=== PATIENT | male | born 1960 | race Caucasian/White ===

== ENCOUNTER → 2019-02-21 | Outpatient (CLI) | payer BC, SELFPAY ==
[2019-02-21 08:55] LABS: AST(SGOT) 16 U/L (15-37); Alanine Aminotransfer ALT/SGPT 40 U/L (16-61); Albumin, Serum 3.8 g/dL (3.2-5.0); Alkaline Phosphatase 61 U/L (45-117); Bilirubin, Direct 0.15 mg/dL (0.00-0.30); Cholesterol 159 mg/dL (200); GGTP 55 U/L (15-85); Globulin 3.1 g/dL (2.2-4.2); High Density Lipoprotein 52 mg/dL; Protein, Total 6.9 g/dL (6.4-8.2); Triglycerides 107 mg/dL; Very Low Density Lipoprotein 21 mg/dL (5-40)
== END | disposition home or self-care (01) ==
LOC: LAB 07:06
PROVIDERS: Family Provider Family Medicine; PCP Family Medicine; Referring Provider Family Medicine; Visit Provider Family Medicine
DX: R94.5 Abnormal results of liver function studies (principal)
CPT/HCPCS: 36415; 80061; 80076; 82977

== ENCOUNTER → 2019-07-31 16:26 | Outpatient (CLI) | payer OTHER, SELFPAY ==
[2019-07-31 18:43] LABS: AST(SGOT) 16 U/L (15-37); Alanine Aminotransfer ALT/SGPT 41 U/L (16-61); Albumin, Serum 4.2 g/dL (3.2-5.0); Alkaline Phosphatase 71 U/L (45-117); Anion Gap 6 (5-15); BUN 18 mg/dL (7-18); BUN/Creat Ratio 19.2 RATIO (10-20); Calcium,Total 9.5 mg/dL (8.5-10.1); Chloride 104 mmol/L (98-107); Cholesterol 166 mg/dL (200); Creatinine, Serum 0.94 mg/dL (0.70-1.30); EST Glomerular Filtration Rate 87 mL/min (>60); Est Glom Filt Rate - Afr Amer 106 mL/min (>60); Globulin 3.3 g/dL (2.2-4.2); Glucose 88 mg/dL (74-106); High Density Lipoprotein 53 mg/dL; Potassium 3.7 mmol/L (3.5-5.1); Protein, Total 7.5 g/dL (6.4-8.2); Sodium Level 138 mmol/L (136-145); Triglycerides 139 mg/dL; Very Low Density Lipoprotein 28 mg/dL (5-40)
== END ==
PROVIDERS: PCP Family Medicine; Referring Provider Family Medicine; Visit Provider Family Medicine
DX: Z00.00 Encounter for general adult medical examination without abnormal findings (principal)
CPT/HCPCS: 36415; 80048; 80061; 80076

== ENCOUNTER → 2020-01-27 15:07 | Outpatient (CLI) | payer OTHER, SELFPAY ==
--- NOTE | 2020-01-27 15:27 | RAD_ITS ---
STUDY: X-RAY - PELVIS AND RIGHT HIP REASON FOR EXAM: Male, 59 years old. bilateral hip pain, right more than the left TECHNIQUE: 3 views of the pelvis and hip. COMPARISON: None. FINDINGS: There is a non-specific bowel gas pattern. Normal visualized soft tissue structures. Normal bilateral iliac wings, sacroiliac joints and visualized sacrum. Normal bilateral superior and inferior pubic rami. Normal pubic symphysis. Normal bilateral ischial tuberosities. Normal visualized femoral head. Normal acetabulum. Mild degenerative narrowing of the hip joint. Small calcific deposits juxtapose the base of the greater trochanter. RAD/HIP, UNI W/ Pelvis 2-3 Views IMPRESSION: Normal pelvis. Mild degenerative narrowing of the right hip. Focal small calcific deposits juxtapose the base of the right greater trochanter. Electronically Signed: Catie Gonsalves MD at 16:46 EDT , Service support ,
[2020-01-27 17:56] LABS: Anion Gap 4 (5-15); BUN 16 mg/dL (7-18); BUN/Creat Ratio 16.5 RATIO (10-20); Calcium,Total 9.1 mg/dL (8.5-10.1); Chloride 107 mmol/L (98-107); Creatinine, Serum 0.97 mg/dL (0.70-1.30); EST Glomerular Filtration Rate 84 mL/min (>60); Est Glom Filt Rate - Afr Amer 102 mL/min (>60); Glucose 100 mg/dL (74-106); Potassium 3.4 mmol/L (3.5-5.1); Sodium Level 138 mmol/L (136-145)
== END ==
PROVIDERS: PCP Family Medicine; Referring Provider Family Medicine; Visit Provider Family Medicine
DX: I10 Essential (primary) hypertension (principal); M25.551 Pain in right hip
CPT/HCPCS: 36415; 73502; 80048

== ENCOUNTER → 2020-08-05 15:58 | Outpatient (CLI) | payer OTHER, SELFPAY ==
[2020-08-05 18:03] LABS: AST(SGOT) 12 U/L (15-37); Alanine Aminotransfer ALT/SGPT 28 U/L (16-61); Anion Gap 6 (5-15); BUN 17 mg/dL (7-18); BUN/Creat Ratio 18.4 RATIO (10-20); Calcium,Total 9.1 mg/dL (8.5-10.1); Chloride 107 mmol/L (98-107); Cholesterol 131 mg/dL (200); Creatinine, Serum 0.92 mg/dL (0.70-1.30); EST Glomerular Filtration Rate 89 mL/min (>60); Est Glom Filt Rate - Afr Amer 107 mL/min (>60); Glucose 84 mg/dL (74-106); High Density Lipoprotein 61 mg/dL; PSA,Total - Annual Screen 4.64 ng/mL (0.00-4.00); Potassium 3.6 mmol/L (3.5-5.1); Sodium Level 140 mmol/L (136-145); Triglycerides 124 mg/dL; Very Low Density Lipoprotein 25 mg/dL (5-40)
== END ==
PROVIDERS: PCP Family Medicine; Referring Provider Family Medicine; Visit Provider Family Medicine
DX: I10 Essential (primary) hypertension (principal); E78.00 Pure hypercholesterolemia, unspecified; N40.0 Benign prostatic hyperplasia without lower urinary tract symptoms
CPT/HCPCS: 36415; 80048; 80061; 84153; 84450; 84460; G0103

== ENCOUNTER → 2020-08-13 08:46 | Outpatient (CLI) | payer OTHER, SELFPAY ==
--- NOTE | 2020-08-13 08:54 | US_ITS ---
EXAM: US ABDOMEN LIMITED, RIGHT UPPER QUADRANT CLINICAL INDICATION: RUQ PAIN TECHNIQUE: Real-time ultrasound of the right upper quadrant with image documentation. This report was created using ReadOz report generation technology. COMPARISON: None available FINDINGS: LIVER: Hypoechoic, septated mass of the right hepatic dome measures 1.8 x 2.4 x 3.2 cm without definitive vascular flow but no posterior acoustic enhancement. No intrahepatic biliary ductal dilation. GALLBLADDER: Unremarkable. No shadowing gallstone. No gallbladder wall thickening is demonstrated. No pericholecystic fluid. Negative sonographic Mayberry''s sign. COMMON BILE DUCT: Unremarkable as visualized. The proximal common bile duct is within normal limits for the patient''s age. PANCREAS: Unremarkable as visualized. No focal abnormality is demonstrated in the pancreas. No pancreatic ductal dilatation. RIGHT KIDNEY: Unremarkable. There is no hydronephrosis. No shadowing calculus. No focal lesion or perinephric collection is demonstrated. US/Abdomen Limited IMPRESSION: Complex hepatic cyst versus solid lesion. Hepatic protocol CT or MRI recommended. Electronically Signed: Manoj Madison MD ([place]) at 15:38 EST , Service support ,
== END ==
PROVIDERS: PCP Family Medicine; Referring Provider Family Medicine; Visit Provider Family Medicine
DX: R10.11 Right upper quadrant pain (principal)
CPT/HCPCS: 76705

== ENCOUNTER → 2020-08-30 | Outpatient (CLI) | payer OTHER, SELFPAY ==
--- NOTE | 2020-08-30 | IMM_PTH ---
PATIENT: ABDULLAHI SNELL . LOC: [facility] U#:[id number] AGE/SX: 60/M ROOM: RE08/30/[address]: Dr. Socrates Mathew MD : 1960 BED: DIS: 08/30/2020 SPEC #: [id number] RECD: 09/01/20 10:48 STATUS: DOUGIE REQ #: [id number] ERNESTINA: 08/30/20 00:[address]: Socrates Mathew DEPT: IMMUNOHISTOCHEMISTRY RECD BY: Ariela Soto ENTERED: 09/01/20 10:49 SP TYPE: IMMUNO OTHR DR: Dr. Tana Ruelas MD Tissues: A - PROSTATE RIGHT B - PROSTATE RIGHT D - PROSTATE LEFT E - PROSTATE LEFT F - PROSTATE LEFT Procedures: 34BE12 (add) P40 (add) 34BE12 (initial) PHYSICIAN & INSTITUTION [place] [id number] SPECIMEN INFORMATION: Tissue Source: A - Right apex, B - Right mid, D - Left apex, E - Left mid, F - Left base Clinical Info: N40.1, R97.20 Specimen Number: [id number] A, B, D, E & F CPT code: 59854, 93364 x9 METHODOLOGY: Deparaffinized sections of prefer/formalin-fixed tissue or PAP/DQ stained slides are incubated with monoclonal/polyclonal antibodies/oligonucleotide probes. Localization is made via biotin free immunoperoxidase method. Appropriate controls are performed and reacted as expected. Results on target cell population are indicated in the following table: RESULTS: ANTIBODY / CLONE RESULT Block A P40 (BC28) negative 34BE12 (34BE12) negative Block B P40 (BC28) negative 34BE12 (34BE12) negative Block D P40 (BC28) negative 34BE12 (34BE12) negative Block E P40 (BC28) negative * 34BE12 (34BE12) negative * Block F P40 (BC28) negative 34BE12 (34BE12) negative *?Positive in the area of high-grade prostatic intraepithelial neoplasia. These tests were developed and their performance characteristics determined by [facility]. They may not have been cleared or approved by the U.S. Food and Drug Administration. The FDA has determined that such clearance or approval is not necessary. The above immunohistochemical/dualISH markers are ordered and reviewed by the Pathologist. INTERPRETATION: A. Right prostate, apex, core biopsy: Adenocarcinoma. B. Right prostate, mid, core biopsy: Adenocarcinoma. D. Left prostate, apex, core biopsy: Adenocarcinoma. E. Left prostate, mid, core biopsy: Focal atypical small acinar proliferation. Focal high-grade prostatic intraepithelial neoplasia (HGPIN). F. Left prostate, base, core biopsy: Adenocarcinoma (one core). Focal atypical small acinar proliferation (other core). SJ:debi 09/02/2020
--- NOTE | 2020-08-30 15:47 | PROSBIL_PTH ---
PATIENT: ABDULLAHI SNELL Doris [facility] U#:[id number] AGE/SX: 60/M ROOM: RE08/30/[address]: Dr. Socrates Mathew MD : 1960 BED: DIS: 08/30/2020 SPEC #: [id number] RECD: 08/30/20 15:47 STATUS: DOUIGE REMichelle #: [id number] ERNESTINA: 08/30/20 15:[address]: Socrates Mathew DEPT: SURGICAL PATHOLOGY RECD BY: Sharyn Gomez ENTERED: 08/31/20 07:43 SP TYPE: PROST BX OSMAR DR: Dr. Tana Ruelas MD Tissues: A - PROSTATE RIGHT B - PROSTATE RIGHT C - PROSTATE RIGHT D - PROSTATE LEFT E - PROSTATE LEFT F - PROSTATE LEFT Procedures: PROSTATE BX HEADER OPERATION: Prostate biopsy PRE-OP DIAGNOSIS: N40.1, R97.20 TISSUE SUBMITTED: A - Right apex, B - Right mid, C - Right base, D - Left apex, E - Left mid, F - Left base MICROSCOPIC DIAGNOSIS A. Right prostate, apex, core biopsy: Prostatic adenocarcinoma. Chaz grade: 3+3=6 Number of cores involved: 1/2 Proportion of tissue involved: <5% Perineural invasion: Not identified. Greatest tumor length: <0.1 cm Focal high-grade prostatic intraepithelial neoplasia (HGPIN). See comment. B. Right prostate, mid, core biopsy: Prostatic adenocarcinoma. Chaz grade: 3+3=6 Number of cores involved: 1/2 Proportion of tissue involved: 5% Perineural invasion: Not identified. Greatest tumor length: 0.2 cm Focal high-grade prostatic intraepithelial neoplasia (HGPIN). See comment. C. Right prostate, base, core biopsy: Prostatic tissue, negative for malignancy. D. Left prostate, apex, core biopsy: Prostatic adenocarcinoma. Chaz grade: 3+3=6 Number of cores involved: 2/2 Proportion of tissue involved: ~5% Perineural invasion: suspected. Greatest tumor length: 0.5 cm, discontinuous Focal mild chronic inflammation and atrophy. See comment. E. Left prostate, mid, core biopsy: Focal atypical small acinar proliferation (DAISY). Focal high-grade prostatic intraepithelial neoplasia (HGPIN). See comment. F. Left prostate, base, core biopsy: Prostatic adenocarcinoma. Ludlow grade: 3+3=6 Number of cores involved: 1/2 Proportion of tissue involved: ~5% Perineural invasion: Not identified. Greatest tumor length: 0.1 cm Focal high-grade prostatic intraepithelial neoplasia (HGPIN). Focal atypical small acinar proliferation (DAISY). See comment. ALEX:debi 09/01/2020 COMMENT A, B, D, E & F - Immunohistochemistry ([id number]) supports the above diagnosis. MICROSCOPIC DESCRIPTION Slides are reviewed. GROSS DESCRIPTION A - Received is one container designated prostate, right apex. The specimen consists of two elongated fragments of light mcghee-white soft tissue each measuring 1 cm in length and 0.1 cm in diameter. The specimen is totally submitted in one cassette. B - Received is one container designated prostate, right mid. The specimen consists of two elongated fragments of light mcghee-white soft tissue each measuring 1.5 cm in length and 0.1 cm in diameter. The specimen is totally submitted in one cassette. C - Received is one container designated prostate, right base. The specimen consists of two elongated fragments of light mcghee-white soft tissue measuring 0.5 and 1 cm in length and 0.1 cm in diameter. The specimen is totally submitted in one cassette. D - Received is one container designated prostate, left apex. The specimen consists of two elongated fragments of light mcghee-white soft tissue each measuring 1.5 cm in length and 0.1 cm in diameter. The specimen is totally submitted in one cassette. E - Received is one container designated prostate, left mid. The specimen consists of one elongated fragment of light mcghee-white soft tissue measuring 1 cm in length and 0.1 cm in diameter. The specimen is totally submitted in one cassette. F - Received is one container designated prostate, left base. The specimen consists of two elongated fragments of light mcghee-white soft tissue each measuring 1.1 cm in length and 0.1 cm in diameter. The specimen is totally submitted in one cassette. / SJ:debi 08/31/20 TC:0 [facility]: [id number] x6
== END | disposition home or self-care (01) ==
LOC: LABSPEC 15:58
PROVIDERS: PCP Family Medicine; Referring Provider Urology; Visit Provider Urology
DX: N40.1 Benign prostatic hyperplasia with lower urinary tract symptoms (principal); R97.20 Elevated prostate specific antigen [PSA]
CPT/HCPCS: 88305; 88341; 88342; G0416

== ENCOUNTER → 2020-08-31 10:10 | Outpatient (CLI) | payer OTHER, SELFPAY ==
--- NOTE | 2020-08-31 10:13 | NM_ITS ---
CLINICAL: 60-year-old male with reported history of right upper quadrant abdominal pain and nausea. RADIONUCLIDE HEPATOBILIARY SCINTIGRAPHY COMPARISON: Abdominal ultrasound report 08/13/2020 FINDINGS: Following the intravenous administration of approximately 5.0 mCi of 99m Tc Mebrofenin, hepatobiliary images reveal: 1. Relatively prompt and homogeneous radiopharmaceutical concentration is noted by a normal sized liver. No parenchymal defects are identified. 2. Gallbladder activity is identified at 10 minutes post radiopharmaceutical administration. 3. Small intestinal tract is observed at 30 minutes following tracer injection. 4. Washout of the radiopharmaceutical by the hepatic parenchyma appears qualitatively normal. Cholecystokinin (0.02 ug/kg) was administered intravenously over a 30-minute period. The post CCK gallbladder ejection fraction calculated at 20 minutes following Cholecystokinin administration was noted to be 60.0 % (normal greater than 35%). During 30 minutes of post CCK imaging, there is no scintigraphic evidence of reflux of the radiotracer into the common hepatic duct or refilling of the gallbladder. NM/Hepatobilliary Img w/Pharm Int IMPRESSION: 1. NORMAL 99m Tc Mebrofenin hepatobiliary imaging examination with Cholecystokinin. A. A gallbladder ejection fraction calculated to be greater than 35% following the administration of Cholecystokinin makes the probability of functional hepatobiliary disease (gallbladder and/or sphincter of Oddi dyskinesia) and/or organic hepatobiliary disease (chronic acalculous cholecystitis and/or cystic duct syndrome) to be low. (Ramona Leslie et al, Journal of Nuclear Medicine 32:1695, 1991). Electronically Signed: Justus Eaton DO at 17:43 EST Tel , Service support ,
== END ==
PROVIDERS: PCP Family Medicine; Referring Provider Family Medicine; Visit Provider Family Medicine
DX: R10.9 Unspecified abdominal pain (principal)
CPT/HCPCS: 78227; A9537; J2805

== ENCOUNTER → 2020-09-14 15:55 | Outpatient (CLI) | payer OTHER, SELFPAY | PROVIDERS: PCP Family Medicine; Referring Provider Internal Medicine Gastroenterology; Visit Provider Internal Medicine Gastroenterology | DX: Z11.59 Encounter for screening for other viral diseases (principal) | CPT/HCPCS: 87635; C9803; U0002 ==

== ENCOUNTER → 2020-09-20 | Outpatient (CLI) | payer OTHER, SELFPAY ==
--- NOTE | 2020-09-20 11:44 | EGD_PTH ---
PATIENT: ABDULLAHI SNELL . [facility] U#:[id number] AGE/SX: 60/M ROOM: RE09/20/[address]: Dr. Sha Dunne MD : 1960 BED: DIS: 09/20/2020 SPEC #: [id number] RECD: 09/21/20 09:44 STATUS: DOUGIE REQ #: [id number] ERNESTINA: 09/20/20 11:[address]: Sha Dunne DEPT: SURGICAL PATHOLOGY RECD BY: Sharyn Gomez ENTERED: 09/21/20 09:44 SP TYPE: EGD BIOPSY OT DR: Dr. Tana Ruelas MD [facility] Tissues: Gastric mucous membrane Procedures: Surgery Specimen Level IV HEADER OPERATION: EGD with biopsy PRE-OP DIAGNOSIS: Abdomen pain, nausea TISSUE SUBMITTED: Biopsy gastric antrum; rule out gastritis MICROSCOPIC DIAGNOSIS Gastric antrum, biopsy: Mild chronic inflammation. AM:debi 09/22/2020 MICROSCOPIC DESCRIPTION Slides are reviewed. GROSS DESCRIPTION Received in fixative is one container labeled with the patient's name and designated gastric antrum. The specimen consists of multiple irregular fragments of light mcghee soft tissue that in aggregate measure 1 x 0.5 x 0.1 cm. The specimen is totally submitted in one cassette. / AM:debi 09/21/20 TC:3 CPT: 45739
== END | disposition home or self-care (01) ==
LOC: LABSPEC 15:28
PROVIDERS: PCP Family Medicine; Visit Provider Internal Medicine Gastroenterology
DX: K29.70 Gastritis, unspecified, without bleeding (principal)
CPT/HCPCS: 88305

== ENCOUNTER 2023-11-20 05:47 | Day surgery (SDC) | payer OTHER, SELFPAY ==
[2023-11-20] VITALS (9 sets, daily range): BP systolic 131–155; BP diastolic 72–97; PULSE 78–100; RESP 16–18; TEMP 36.1–37.4; O2SAT 95–100; BMI 36.6
--- NOTE | 2023-11-20 06:25 | HP.PCM_ITS ---
History and Physical Date of Admission: 11/20/23 Intake Vital Signs 10/14/2413:37 Height 5 ft 11 in Weight: 266 lb BMI 37.0 BP 149/90 H Blood Pressure Location Rt brachial Position Sitting Respiration 18 Pulse 84 Pulse Source Monitor Temp 97.6 F L Temp Source Temporal Pulse Oximetry (%) 97 Oxygen Delivery Method room air Intake Visit Reasons: INGUINAL HERNIA x2 Chief Complaint: bilateral inguinal hernia Accompanied by: Is patient in pain?: No Allergies No Known Allergies Allergy (Unverified 10/15/23 14:37) Medications aspirin 81 mg chewable tablet 81 mg PO DAILY 10/15/23 [History Confirmed 10/15/23] atorvastatin 40 mg tablet 40 mg PO QHS 10/15/23 [History Confirmed 10/15/23] glucosamine HQe-A6-Ogigolpzu angela 1,500 mg-400 unit-100 mg tablet (Osteo Bi- Flex (5-Loxin)) 1 tab PO DAILY 10/15/23 [History Confirmed 10/15/23] lansoprazole 30 mg capsule,delayed release 30 mg PO QDAY 10/15/23 [History Confirmed 10/15/23] omega-3 1,050 lw-und-xfn-dpa-fish oil 1,200 mg capsule (Charlotte-3 (with docosapentaenoic acid)) 1 cap PO DAILY 10/15/23 [History Confirmed 10/15/23] polyethylene glycol 3350 17 gram/dose oral powder (Miralax) 4 g PO DAILY 10/15/23 [History Confirmed 10/15/23] tadalafil 5 mg tablet 5 mg PO QDAY 10/15/23 [History Confirmed 10/15/23] PFSH Surgical History (Updated 10/15/23 @ 14:43 by Ariana Guevara LPN) H/O prostatectomy S/P appendectomy Social History (Updated 10/15/23 @ 14:43 by Ariana Guevara LPN) Smoking Status: Never smoker alcohol intake: never substance use type: does not use HPI HPI HPI: Patient is a 63-year-old male here to discuss inguinal hernias. Patient reports he had a robotic prostatectomy 3 years ago and at that time the patient's urologist asked him if he was having any symptoms from his hernias. The patient reports they have gotten larger over the years and are more painful. He has pain and bulging on both sides with the left is worse than the right. ROS General General: No weight change, appetite, fatigue, colon cancer, breast cancer or w eakness HEENT HEENT: No difficulty swallowing, eye injury, eye surgery, swollen glands or hoarseness Endo Endocrine: No thyroid disease, diabetes mellitus, thyroid cancer, Hair loss, heat intolerance or cold intolerance Skin Skin: No rash or changing moles Musc Musculoskeletal: Yes arthritis; No back problems, rheumatoid arthritis, gout or joint pain Cardio Cardiovascular: No murmur, pacemaker, heart disease, atrial fibrillation, high blood pressure, heart attack, heart stent, palpitations, shortness of breat with exertion or chest pain Psych Psychiatric: No depression, anxiety or hearing voices Resp Respiratory: No shortness of breath, No sleep apnea, No cough, No COPD, No asthma, No emphysema and No wheezing Gastro Gastrointestinal: Yes abdominal pain, No nausea or vomiting, No diarrhea, No constipation, No blood in stool, Yes acid reflux, Yes hemorrhoids, No ulcers, No gallbladder problem and No black,tarry stools Rivera Hematologic: No blood thinners, No blood disorders, No bleeding, No anemia and No blood clots Neuro Neurologic: No numbness, No tingling and No weakness Exam Const General: cooperative Orientation: alert and oriented x3 HENMT Head: normal to inspection Neck Neck: normal visual inspection and full ROM Chest Chest palpation & inspection: normal inspection of the chest Resp Effort & Inspection: normal respiratory effort Auscultation: clear to auscultation bilaterally Cardio Rate: regular rate Rhythm: regular rhythm GI Inspection: non-distended Palpation: soft, hernia indirect inguinal bilaterally and nontender Skin General: no rashes or lesions noted Neuro General: patient alert and patient oriented x3 Extrem General: full ROM Psych Appearance: grossly normal Mental Status: mental status grossly normal Assessment and Plan Assessment and Plan (1) Bilateral inguinal hernia: Status: Acute Plan: The patient has bilateral inguinal hernias which are reducible and soft. The left is larger than the right. The patient is here because he is requesting robotic hernia repair but after robotic prostatectomy the planes in the preperitoneum are no longer there and usually after robotic prostatectomy I recommend open inguinal hernia repair. I discussed this with him in detail. The patient is deciding if he would like bilateral inguinal hernia repair or start with the left and then to the right or if he is going to return to [facility]. I discussed the surgery in detail as well as the risks including not limited to bleeding, infection, injury other organ such as the nerves or testicular vessels. Patient understands the risks and will call us back to schedule if he decides to proceed. Lane Concepcion MD Pager: [facility] [address] [place] [address], [address] [place] [address] Office: I have examined the patient and the H&P has been reviewed. There are no clinical changes since date of exam.
[2023-11-20] MEDS: Lactated Ringers 1,000 ML 15 ML IV (06:41)
[2023-11-20] MEDS: Cefazolin 2 GM in 0.9% Normal Saline (100mL Bag) 100 ML IV (07:23)
--- NOTE | 2023-11-20 07:30 | HERN_PTH ---
PATIENT: ABDULLAHI SNELL Doris LOC: [facility] [place] U#:[id number] AGE/SX: 63/M ROOM: RE11/20/[address]: Dr. Lane Concepcion MD : 1960 BED: DIS: 11/20/2023 SPEC #: [id number] RECD: 11/20/23 09:44 STATUS: DOUGIE COLON #: [id number] ERNESTINA: 11/20/23 07:[address]: Lane Concepcion DEPT: SURGICAL PATHOLOGY RECD BY: Kellee Nelson ENTERED: 11/20/23 12:17 SP TYPE: Hernia OTHR DR: Dr. Bhanu Garcia MD Tissues: A - LIPOMA OF CORD B - HERNIA Procedures: Surgery Specimen Level II Surgery Specimen Level III HEADER OPERATION: Hernia. Left inguinal with mesh PRE-OP DIAGNOSIS: Left inguinal hernia TISSUE SUBMITTED: A- Lipoma of cord, B- Left inguinal hernia sac MICROSCOPIC DIAGNOSIS A. Lipoma of cord, excision: Mature adipose tissue, consistent with lipoma. B. Hernia sac: Pieces of fibroadipose and fibroconnective tissue, consistent with hernia sac. / 11/21/2023 MICROSCOPIC DESCRIPTION Slides are reviewed. GROSS DESCRIPTION A. Received in fixative is one container labeled with the patient's name and designated Lipoma of cord. The specimen consists of a piece of adipose tissue measuring 4.5 x 3.0 x 1.5cm. Sections reveal yellow adipose cut surfaces without hemorrhage, necrosis or cystic degeneration. [employer] sections are submitted in one cassette. B. Received in fixative is one container labeled with the patient's name and designated hernia sac. The specimen consists of two pieces of mcghee-yellow fibroadipose tissue measuring in aggregate 9.5 x 6.0 x 1.0cm. No mass lesion is identified. [employer] sections are submitted in one cassette. / 11/20/2023 TC:1 CPT:80384,46351
[2023-11-20] MEDS: Bupiv/Epi 0.25% 30 ML Vial (09:29)
--- NOTE | 2023-11-20 09:30 | PCM.OPRPT ---
Report of Operation Date of Procedure: 11/20/23 Pre-Operative Diagnosis: Left inguinal hernia Post-Operative Diagnosis: Same Surgery/Procedure Performed:: Left inguinal hernia repair with mesh Type of Anesthesia: General/Regional Specimen's removed: Left inguinal hernia sac and cord lipoma Estimated Blood Loss (mL): 20 Description of Procedure: Patient was brought back to the operating room and general anesthesia was induced. Left groin was prepped and draped in usual sterile fashion. Incision marked and then injected with local anesthetic. Incision was made with a scalpel and the subcutaneous vein was ligated with 0 Vicryl suture. Dissection was carried deeply down but the external aponeurosis was very thin and the hernia was very large. The hernia sac was dissected free circumferentially which was very difficult as it was very adherent to the spermatic cord. There was a lot of scar tissue from his prior prostatectomy. I was able to circumferentially dissect the hernia sac free but it was too large to imbricate. The hernia sac was then removed from the contents. After the hernia sac was dissected free circumferentially and the contents were reduced the hernia defect was closed with 3-0 Vicryl suture. Next a keyhole mesh was tacked to the pubic tubercle using 2-0 PDS suture. It was then tacked to the conjoined tendon using interrupted PDS sutures. It was then sutured to the shelving portion of the inguinal ligament using interrupted PDS sutures. The tails were placed around the spermatic cord and tied together. There was enough space to slip the finger next to the spermatic cord. The tails were tucked underneath and the area was irrigated and suctioned dry. There was good hemostasis. As much as possible of the external aponeurosis was closed using a running 3-0 Vicryl suture. The subcutaneous tissue was irrigated and suctioned dry and Casey's fascia was closed interrupted 3-0 Vicryl sutures. The skin incision was closed with running 4-0 Monocryl suture and Dermabond was applied. Scrotum was checked in the end the case contain both testicles. Patient tolerated the procedure well was brought to PACU in stable condition. Grafts/Implants Used: Bard keyhole mesh in the left inguinal region Admit VTE Documentation VTE Mechan Device Prophylaxis: SCD's
--- NOTE | 2023-11-20 09:34 | DCINST_ITS ---
Discharge Instructions Diet Discharge Diet: Light diet - advance as tolerated Activity Discharge Activity: May Not Drive (for 2-3 days or while taking narcotic pain meds.) and May Shower (with the bandage in place 1-2 days after surgery.) Lifting Restrictions: 20 pounds for 2 weeks Additional Activity Instructions:: Climbing stairs is fine, walking is encouraged. Sitting in bed may be uncomfortable. Sitting up using your lateral muscles (sitting up sideways) is usually more comfortable. Do not drive, work heavy equipment or sign legal documents for 24 hours. If your hernia repair was an inguinal repair, you may have scrotal swelling, an ice pack and/or athletic support can provide more comfort. Pain medications may cause nausea, you should typically eat light foods as you take your pain medications. Pain medications may also cause constipation. If you have difficulty with this, discuss with your doctor. Alternate ibuprofen and Tylenol for pain control, oxycodone for breakthrough pain. Dressing / Incision Call your doctor if your incision/area has: Continuous Slow Oozing, Sudden Increased Bleeding, Increased Pain/ Swelling, Increased Redness and Foul Smel ling Discharge Call your doctor if you observe: Fever of 101 or Higher Suture Line Care: Avoid Pulling/Pushing and Avoid Pinching/Bending Cleanse incision/area with: Soap & Water Follow Up Care Please Follow Up With: Lane Concepcion MD When: Please call to schedule 2 week follow up appointment. [phone] Test Results: Test results from this visit will be discussed in further detail at your follow- up appointment, if applicable. Discharge Plan Admission Attending Provider: Lane Concepcion Primary Care Provider: Bhanu Garcia Instructions Print Language: Iraqi Discharge Orders/Prescriptions Prescriptions: New oxycodone 5 mg tablet 5 - 10 mg PO Q6H PRN (Reason: pain) 5 Days Qty: 20 0RF No Action tadalafil 5 mg tablet 5 mg PO QDAY atorvastatin 40 mg tablet 40 mg PO QHS lansoprazole 30 mg capsule,delayed release(DR/EC) 30 mg PO QDAY aspirin 81 mg tablet,chewable 81 mg PO DAILY Patient Comments: STOP 5 DAYS PRIOR TO SURGERY rdzyradvqzs-P4-Wdhipjegm serr [Osteo Bi-Flex (5-Loxin)] 1,500-400-100 mg-unit- mg tablet 1 tab PO DAILY Rx Instructions: give after food/meal polyethylene glycol 3350 [Miralax] 17 gram/dose powder 4 g PO DAILY PRN (Reason: laxative effect) multivitamin [Daily Multi-Vitamin] Tablet 1 tab PO DAILY TABBY TEA 1 tsp PO DAILY Other Ambulatory Orders: 12 Lead EKG (Routine) Timeframe: 20231104 Facility: [facility] - Location: Cardiovascular Services Ordered By: Dr. Fernando Franco Referrals / Follow Up: Bhanu Garcia MD [Primary Care Provider] - Disposition Disposition (needs filled in before D/C Order can be placed): Home, Self Care
[2023-11-20] MEDS: oxyCODONE 5 MG Tablet PO (11:02)
[2023-11-20] MEDS: Acetaminophen 325 MG Tablet 650 MG PO (11:02)
== END 2023-11-20 12:15 | disposition home or self-care (01) ==
LOC: SDC 05:48 → AC 05:49
PROVIDERS: PCP Family Medicine; Referring Provider Family Medicine; Visit Provider Surgery
PROC: (CPT 49505; principal; 2023-11-20 07:15)
DX: K40.20 Bilateral inguinal hernia, without obstruction or gangrene, not specified as recurrent (principal); Z90.79 Acquired absence of other genital organ(s); Z90.49 Acquired absence of other specified parts of digestive tract; I45.10 Unspecified right bundle-branch block; Z87.891 Personal history of nicotine dependence; D17.6 Benign lipomatous neoplasm of spermatic cord
CPT/HCPCS: 49505; 55520; 00830; 88302; 88304; A4648; J7120; C1781; J2405

== ENCOUNTER → 2025-03-12 | Outpatient (CLI) | payer OTHER, SELFPAY ==
--- NOTE | 2025-03-12 09:44 | RAD_ITS ---
PROCEDURE: WRIST MIN 3 VIEWS 03/12/2025 REASON FOR EXAM: RIGHT WRIST PAIN Following injury. TECHNIQUE: Procedure Code: RADWR Modality: DX Procedure: WRIST MIN 3 VIEWS Laterality: Right wrist COMPARISON: None FINDINGS: Bones: No visible fracture. No suspicious bone lesion. Joints: Normal alignment. Soft tissues: Soft tissues are unremarkable. Other: RAD/Wrist min 3 Views IMPRESSION: NEGATIVE WRIST Reading Location: [facility]
== END | disposition home or self-care (01) ==
LOC: MTRAD 09:42
PROVIDERS: PCP Family Medicine; Referring Provider Physician Assistant Surgical; Visit Provider Physician Assistant Surgical
DX: S66.911A Strain of unspecified muscle, fascia and tendon at wrist and hand level, right hand, initial encounter (principal)
CPT/HCPCS: 73110